=== PATIENT | male | born 1965 | race Caucasian/White ===

== ENCOUNTER 2019-04-05 19:20 | Emergency (ER) | payer MEDICAID ==
[~2019-04-05] VITALS: Ht 185.4 cm; Wt 81.8 kg
[2019-04-05 19:38] VITALS: BP 108/66
[2019-04-05] MEDS ORDERED: sulfamethoxazole/trimethoprim DS (800/160mg) tablet PO ONE (20:25)
[2019-04-05] MEDS ORDERED: SULF1TAB49 PO (20:28)
== END 2019-04-05 20:40 | disposition home or self-care (01) ==
LOC: ER 19:21
DX: L02.413 Cutaneous abscess of right upper limb (principal); Z79.2 Long term (current) use of antibiotics
CPT/HCPCS: 99283